=== PATIENT | male | born 1990 | race Two or more races ===

== ENCOUNTER 2019-09-12 22:29 | Emergency (ER) | payer OTHER ==
[~2019-09-12] VITALS: Ht 180.3 cm; Wt 90.7 kg
[2019-09-13 00:04] VITALS: BP 149/99
== END 2019-09-13 00:47 | disposition home or self-care (01) ==
LOC: ER 22:29
DX: S61.412A Laceration without foreign body of left hand, initial encounter (principal); W22.8XXA Striking against or struck by other objects, initial encounter; Y93.89 Activity, other specified; Y99.8 Other external cause status; Y92.89 Other specified places as the place of occurrence of the external cause
CPT/HCPCS: 12001